=== PATIENT | male | born 1945 | race Caucasian/White ===

== ENCOUNTER 2018-05-17 14:00 | Outpatient (CLI) | payer OTHER ==
[~2018-05-17 14:00] MED LIST: CIPRO750 MG PO; CLONAZEPAM1 MG PO; DOCUSATE SODIU100 MG PO; METHYLPRED4 MG/DOSE- PO; NEURONTIN PO; PERCOCET 5/3251 TAB PO
== END 2018-05-17 14:02 | disposition home or self-care (01) ==
LOC: RAD 14:00
DX: M48.07 Spinal stenosis, lumbosacral region (principal); Z98.1 Arthrodesis status

== ENCOUNTER → 2020-10-30 08:32 | Outpatient (CLI) | payer OTHER ==
[~2020-10-30 08:32] MED LIST changes: +AMOX-CLAV 875-1 EAC1 PO; +COLACE100 MG PO; +DIAZEPAM5 MG PO; +ENALAPRIL MALEA10 MG PO; +FENOFIB PO; +HORIZANT300 MG PO; +HYDROCHLOROTHIA25 MG PO; +MEDROLPACK PO; +NEURONTIN800 MG PO; +PERCOCET 5-3251 EACH PO; +SIMVASTA
== END | disposition home or self-care (01) ==
LOC: LAB 08:32
PROVIDERS: ATTEND Orthopaedic Surgery Orthopaedic Surgery of the Spine
DX: D68.8 Other specified coagulation defects (principal); D64.9 Anemia, unspecified; E03.8 Other specified hypothyroidism

== ENCOUNTER 2020-11-06 11:44 | Inpatient (IN) | payer OTHER ==
[~2020-11-06] VITALS: Ht 167.6 cm; Wt 79.4 kg
[~2020-11-06 11:44] MED LIST changes: -AMOX-CLAV 875-1 EAC1 PO; -COLACE100 MG PO; -DIAZEPAM5 MG PO; -ENALAPRIL MALEA10 MG PO; -FENOFIB PO; -HORIZANT300 MG PO; -HYDROCHLOROTHIA25 MG PO; -MEDROLPACK PO; -NEURONTIN800 MG PO; -PERCOCET 5-3251 EACH PO; -SIMVASTA
[2020-11-06] MEDS ORDERED: HYDROCHLOROTHIA25 MG PO (12:22)
[2020-11-06] MEDS ORDERED: ENALAPRIL MALEA10 MG PO (12:22)
[2020-11-06] MEDS ORDERED: FENOFIB PO (12:23)
[2020-11-06] MEDS ORDERED: CLONAZEPAM1 MG PO (12:24)
[2020-11-06] MEDS ORDERED: SIMVASTA (12:24)
[2020-11-06] MEDS ORDERED: HORIZANT300 MG PO (12:25)
[2020-11-13] MEDS ORDERED: MEDROLPACK PO (12:53)
[2020-11-13] MEDS ORDERED: PERCOCET 5-3251 EACH PO (12:53)
[2020-11-13] MEDS ORDERED: DIAZEPAM5 MG PO (12:53)
[2020-11-13] MEDS ORDERED: NEURONTIN800 MG PO (12:55)
[2020-11-13] MEDS ORDERED: COLACE100 MG PO (12:55)
[2020-11-13] MEDS ORDERED: AMOX-CLAV 875-1 EAC1 PO (12:55)
== END 2020-11-14 14:43 | disposition home or self-care (01) | DRG 455 ==
LOC: O/R 11-13 06:48 → PED 11-13 06:48 → SURH 11-13 12:30 → PED 11-13 16:52
PROVIDERS: ADMIT Orthopaedic Surgery Orthopaedic Surgery of the Spine; ATTEND Orthopaedic Surgery Orthopaedic Surgery of the Spine
PROC: 0SG10J1 Fusion of 2 or more Lumbar Vertebral Joints with Synthetic Substitute, Posterior Approach, Posterior Column, Open Approach (ICD-10-PCS; 2020-11-13)
PROC: 0SG10A0 Fusion of 2 or more Lumbar Vertebral Joints with Interbody Fusion Device, Anterior Approach, Anterior Column, Open Approach (ICD-10-PCS; 2020-11-13)
PROC: 3E0U0GB Introduction of Recombinant Bone Morphogenetic Protein into Joints, Open Approach (ICD-10-PCS; 2020-11-13)
PROC: 0SG10A0 Fusion of 2 or more Lumbar Vertebral Joints with Interbody Fusion Device, Anterior Approach, Anterior Column, Open Approach (ICD-10-PCS; principal; 2020-11-13 14:00)
DX: M48.062 Spinal stenosis, lumbar region with neurogenic claudication (principal); M41.56 Other secondary scoliosis, lumbar region

== ENCOUNTER → 2020-12-04 | Outpatient (CLI) | payer OTHER ==
[~2020-12-04] MED LIST changes: +AMOX-CLAV 875-1 EAC1 PO; +COLACE100 MG PO; +DIAZEPAM5 MG PO; +ENALAPRIL MALEA10 MG PO; +FENOFIB PO; +HORIZANT300 MG PO; +HYDROCHLOROTHIA25 MG PO; +MEDROLPACK PO; +NEURONTIN800 MG PO; +PERCOCET 5-3251 EACH PO; +SIMVASTA
== END | disposition home or self-care (01) ==
LOC: RAD 11:46
PROVIDERS: ATTEND Orthopaedic Surgery Orthopaedic Surgery of the Spine
DX: Z98.1 Arthrodesis status (principal)

== ENCOUNTER 2021-03-12 12:05 | Outpatient (CLI) | payer OTHER | END 2021-03-12 12:20 | disposition home or self-care (01) | LOC: RAD 12:05 | PROVIDERS: ATTEND Orthopaedic Surgery Orthopaedic Surgery of the Spine | DX: M54.5 Low back pain (principal); Z98.1 Arthrodesis status ==

== ENCOUNTER 2021-04-30 09:12 | Emergency (ER) | payer OTHER ==
[~2021-04-30] VITALS: Ht 167.6 cm; Wt 72.6 kg
== END 2021-04-30 20:44 | disposition home or self-care (01) ==
LOC: ER 09:12
DX: R22.31 Localized swelling, mass and lump, right upper limb (principal); R10.11 Right upper quadrant pain

== ENCOUNTER 2021-05-22 05:00 | Day surgery (SDC) | payer OTHER | END 2021-05-22 10:00 | disposition home or self-care (01) | LOC: AMB-ENDOS 05:00 | PROVIDERS: ATTEND Surgery | DX: K62.89 Other specified diseases of anus and rectum (principal); K64.8 Other hemorrhoids ==